=== PATIENT | female | born 1955 | race Caucasian/White ===

== ENCOUNTER 2019-03-07 00:08 | Emergency (ER) | payer OTHER ==
[2019-03-07] MEDS ORDERED: LIDOCAINE 2% VISCOUS SOLN 20 ML UDCUP PO ONE (02:17)
[2019-03-07] MEDS ORDERED: METOCLOPRAMIDE HCL ORAL SOLN 10 MG/10 ML UDCUP PO ONE (02:17)
[2019-03-07] MEDS ORDERED: MAG HYDROX/AL HYDROX/SIMETH SUSP 30 ML UDCUP PO ONE (02:17)
--- NOTE | 2019-03-07 02:20 | ER Document Report ---
ED Medical Screen (RME) - General Chief Complaint: Chest Pain Stated Complaint: CHEST PAIN Time Seen by Provider: 03/07/19 02:17 Notes: 63-year-old female chief complaint of "bad reflux". She states she woke up with what felt like burning reflux, she also developed pain running up her chest towards her throat. She takes omeprazole, has a history of hiatal hernia. She denies fever/chills, vomiting. She states she had a negative cardiac c atheterization in the past, only diagnosed medical problems are GERD, depression, and hypothyroidism. TRAVEL OUTSIDE OF THE [place] IN LAST 30 DAYS: No - Related Data Allergies/Adverse Reactions: acetaminophen [From Percocet] Allergy (Verified 03/07/19 00:10) oxycodone [From Percocet] Allergy (Verified 03/07/19 00:10) Penicillins Allergy (Verified 03/07/19 00:10) Physical Exam - Vital signs Vitals: Temp Pulse Resp BP Pulse Ox 98.0 F 91 24 H 143/80 H 95 03/07/19 00:30 03/07/19 00:30 03/07/19 00:30 03/07/19 00:30 03/07/19 00:30 - Respiratory Respiratory status: No respiratory distress Breath sounds: Normal. No: Decreased air movement, Wheezing - Cardiovascular Rhythm: Regular. No: Tachycardia Heart sounds: Normal auscultation, S1 appreciated, S2 appreciated Course - Re-evaluation Re-evalutation: I have greeted and performed a rapid initial assessment of this patient. A comprehensive ED assessment and evaluation of the patient, analysis of test results and completion of the medical decision making process will be conducted by additional ED providers. - Vital Signs Vital signs: Temp Pulse Resp BP Pulse Ox 98.0 F 91 24 H 143/80 H 95 03/07/19 00:30 03/07/19 00:30 03/07/19 00:30 03/07/19 00:30 03/07/19 00:30
[2019-03-07 03:12] LABS: ABSOLUTE BASOPHILS # (AUTO) 0.1 10^3/uL (0.0-0.2); ABSOLUTE EOSINOPHILS # (AUTO) 0.1 10^3/uL (0.0-0.6); ABSOLUTE LYMPHOCYTES (AUTO) 2.1 10^3/uL (0.5-4.7); ABSOLUTE MONOCYTES (AUTO) 0.6 10^3/uL (0.1-1.4); ABSOLUTE NEUT (AUTO) 5.1 10^3/uL (1.7-8.2); EOSINOPHILS % (AUTO) 1.5 % (0-6); HEMATOCRIT 40.5 % (36.0-47.0); HEMOGLOBIN 13.4 g/dL (12.0-15.5); MEAN CORPUSCULAR VOLUME 85 fl (80-97); MONOCYTES % (AUTO) 7.4 % (3-13); PLATELET COUNT 195 10^3/uL (150-450); RED BLOOD COUNT 4.77 10^6/uL (3.72-5.28); RED CELL DISTRIBUTION WIDTH 13.2 % (11.5-14.0); SEGMENTED NEUTROPHILS % (AUTO) 64.1 % (42-78); TOTAL CELLS COUNTED % (AUTO) 100 %; WHITE BLOOD COUNT 7.9 10^3/uL (4.0-10.5)
--- NOTE | 2019-03-07 03:23 | ER Document Report ---
ED General - General Chief Complaint: Chest Pain Stated Complaint: CHEST PAIN Time Seen by Provider: 03/07/19 02:17 Primary Care Provider: NAV JAQUEZ MD [Primary Care Provider] - Follow up as needed Notes: Patient is a pleasant 63-year-old female presents with complaint of symptoms that she considers to be acid reflux. She says she woke up with a burning going up her chest and into her throat. She says she felt acid in the back of her throat. She has history of a hiatal hernia and says she has had the symptoms before and it feels very similar. No fevers. No vomiting. No diarrhea. No history of coronary disease. She had heart cath 15 years ago which was normal. She does not smoke. She takes omeprazole every day. She occasionally takes ibuprofen. He did receive a GI cocktail in triage which she says has eliminated approximately 50% of the burning. No other complaints at this time. TRAVEL OUTSIDE OF THE [place] IN LAST 30 DAYS: No - Related Data Allergies/Adverse Reactions: acetaminophen [From Percocet] Allergy (Verified 03/07/19 00:10) oxycodone [From Percocet] Allergy (Verified 03/07/19 00:10) Penicillins Allergy (Verified 03/07/19 00:10) Past Medical History - Social History Smoking Status: Never Smoker Frequency of alcohol use: None Drug Abuse: None Family History: Reviewed & Not Pertinent Review of Systems - Review of Systems Notes: My Normal Review Basic REVIEW OF SYSTEMS: CONSTITUTIONAL : Denies fever, chills, or sweats. Denies recent illness. EENT: Burning into the back of throat CARDIOVASCULAR: Burning discomfort in the chest RESPIRATORY: Some coughing. Denies shortness of breath, difficulty breathing, or wheezing. GASTROINTESTINAL: Denies abdominal pain. Denies nausea, vomiting, or diarrhea. MUSCULOSKELETAL: Denies neck or back pain or joint pain or swelling. SKIN: Denies rash or skin lesions. NEUROLOGICAL: Denies altered mental status or loss of consciousness. ALL OTHER SYSTEMS REVIEWED AND NEGATIVE. Physical Exam - Vital signs Vitals: Temp Pulse Resp BP Pulse Ox 98.0 F 91 24 H 143/80 H 95 03/07/19 00:30 03/07/19 00:30 03/07/19 00:30 03/07/19 00:30 03/07/19 00:30 - Notes Notes: General Appearance: Well nourished, alert, cooperative, no acute distress, no obvious discomfort. Vitals: reviewed, See vital signs table. Head: no swelling or tenderness to the head Eyes: PERRL, EOMI, Conjuctiva clear Mouth: No decreasd moisture Neck: Supple, no neck tenderness, No thyromegaly Lungs: No wheezing, No rales, No rhonci, No accessory muscle use, good air exchange bilaterally. Heart: Normal rate, Regular rythm, No murmur, no rub Abdomen: Normal BS, soft, No rigidity, No abdominal tenderness, No guarding, no rebound, no abdominal masses, no organomegaly Extremities: good pulses in all extremities, Skin: warm, dry, appropriate color, no rash Neuro: speech clear, oriented x 3, normal affect, responds appropriately to questions. Course - Re-evaluation Re-evalutation: 03/07/19 06:18 Patient's cardiac enzymes and EKG are negative. I suspect her symptoms are related to acid reflux. She describes her pain as a burning type sensation going into her throat and she feels acid and burning into the back of her throat. This would make more sense with her aortic hernia and acid reflux. She her symptoms did improve with GI cocktail. Also give her Carafate. I will prescribe her Carafate. I informed her that she should still have a low threshold to return to ER if she has worsening chest pain, difficulty breathing, fevers, black or tarry stools, or if she feels unwell. Patient agrees with plan and will be discharged home. Dictation of this chart was performed using voice recognition software; therefore, there may be some unintended grammatical errors. 03/07/19 06:19 - Vital Signs Vital signs: Temp Pulse Resp BP Pulse Ox 98.0 F 84 17 133/71 H 96 03/07/19 05:42 03/07/19 05:42 03/07/19 05:42 03/07/19 05:42 03/07/19 05:42 - Laboratory Result Diagrams: 03/07/19 02:57 03/07/19 02:57 Laboratory results interpreted by me: 03/07/19 02:57 Glucose 241 H Calcium 10.5 H AST 54 H ALT 55 H - EKG Interpretation by Me Additional EKG results interpreted by me: 03/07/19 03:22 EKG is reviewed and interpreted by me. EKG shows sinus rhythm with a rate of [address] segment elevation or depression. Patient does have a right bundle branch block. TN interval is within normal range. QRS duration QT intervals are prolonged. No old EKG for comparison at this time. Discharge - Discharge Clinical Impression: Esophagitis Chest pain Qualifiers: Chest pain type: unspecified Qualified Code(s): R07.9 - Chest pain, unspecified Condition: Good Disposition: HOME, SELF-CARE Additional Instructions: I suspect that likely your symptoms are related to esophagitis and acid reflux in relation to your hiatal hernia. Still want to have a low threshold to return to ER if you have worsening chest pain, difficulty breathing, black stools, vomiting or if you feel unwell. Your heart enzymes are normal. Your EKG was normal-appearing. No evidence of heart attack today on your work-up. Please try to avoid NSAID medications. Please take the Carafate as prescribed. Continue to take your omeprazole. Avoid spicy foods and acidic foods. Prescriptions: Sucralfate [Carafate 1 gm Tablet] 1 gm PO ACHS #120 tablet Referrals: NAV JAQUEZ MD [Primary Care Provider] - Follow up as needed
[2019-03-07] MEDS ORDERED: SUCRALFATE 1 GM TABLET PO ONE (03:28)
--- NOTE | 2019-03-07 03:32 | RADIOLOGY REPORT (SQ) ---
EXAM DESCRIPTION: XR CHEST 1 VIEW COMPLETED DATE/TME: 03/07/2019 02:17 CLINICAL HISTORY: 63 years, Female, chest pain COMPARISON: None. NUMBER OF VIEWS: 1 TECHNIQUE: Portable chest LIMITATIONS: None. FINDINGS: Heart size is normal. Minimal scarring right lung base. Lungs are otherwise clear. No pneumothorax IMPRESSION: No acute cardiopulmonary process copyright 2010 [employer]- All Rights Reserved
[2019-03-07 03:53] LABS: ALANINE AMINOTRANSFERASE 55 U/L (9-52); ALBUMIN 4.8 g/dL (3.5-5.0); ALKALINE PHOSPHATASE 97 U/L (38-126); ANION GAP 11 (5-19); ASPARTATE AMINO TRANSFERASE 54 U/L (14-36); BILIRUBIN,DIRECT 0.2 mg/dL (0.0-0.4); BILIRUBIN,TOTAL 0.3 mg/dL (0.2-1.3); BLOOD UREA NITROGEN 13 mg/dL (7-20); CALCIUM 10.5 mg/dL (8.4-10.2); CARBON DIOXIDE 27 mmol/L (22-30); CHLORIDE 101 mmol/L (98-107); GLUCOSE 241 mg/dL (75-110); LIPASE 128.1 U/L (23-300); POTASSIUM 4.5 mmol/L (3.6-5.0); SODIUM 139.4 mmol/L (137-145); TOTAL PROTEIN 7.8 g/dL (6.3-8.2)
[2019-03-07 05:45] VITALS: BP 133/71
--- NOTE | 2019-03-08 23:51 | EKG REPORT ---
SEVERITY:- ABNORMAL ECG - SINUS RHYTHM RIGHT BUNDLE BRANCH BLOCK : Confirmed by: Reji Snyder 08-Mar-2019 23:50:04
== END 2019-03-07 05:42 | disposition home or self-care (01) ==
LOC: ER 00:08
DX: K20.9 Esophagitis, unspecified (principal); R07.9 Chest pain, unspecified; Z88.6 Allergy status to analgesic agent; Z88.0 Allergy status to penicillin
CPT/HCPCS: 93005; 99285; 36415; 83690; 85025; 80053; 84484; 71045; 93010; J3490